=== PATIENT | female | born 1995 | race Hispanic/Latino ===

== ENCOUNTER 2023-03-22 05:05 | Emergency (ER) | payer OTHER ==
[2023-03-22 06:08] LABS: Absolute Lymphocytes (CBC) 1.8 K/uL (0.7-4.9); Hematocrit 39.3 % (36.0-45.0); Lymphocytes % 19.9 % (15.3-44.8); MCV 76.9 fL (80-100); MPV 7.9 fL (7.6-11.3); RBC Red Blood Cell Count 5.11 M/uL (3.86-4.86)
[2023-03-22 06:09] LABS: Specific Gravity 1.014 (1.005-1.030)
[2023-03-22 06:21] LABS: Specific Gravity 1.014 (1.005-1.030); Transitional Epithelial <5 /HPF (None Seen); Urine Bacteria 20-50 /HPF (<20); Urine Bilirubin NEGATIVE (Negative); Urine Blood 2+ (Negative); Urine Clarity Extremely Turbid (Clear); Urine Color Light-Yellow (Yellow); Urine Glucose NEGATIVE (Negative); Urine Mucus Slight /HPF (None Seen); Urine Protein 1+ (Negative); Urine Urobilinogen Normal (Normal); Urine WBC Clump Rare /HPF (None Seen)
[2023-03-22 06:25] LABS: Albumin 3.5 g/dL (3.4-5.0); Bilirubin Total 0.3 mg/dL (0.2-1.0); Potassium 3.7 mEq/L (3.5-5.1); Protein, Total 8.1 g/dL (6.4-8.2)
[2023-03-22] MEDS ORDERED: NA CHLORIDE 0.9% 1,000 ML ONE (06:35)
--- NOTE | 2023-03-22 07:07 | RAD REPORT ---
EXAM DESCRIPTION: CTAbdomen Pelvis W Contrast - 03/22/2023 6:56 am CLINICAL HISTORY: ABD PAIN COMPARISON: No comparisons TECHNIQUE: CT of the abdomen and pelvis was performed. All CT scans are performed using dose optimization technique as appropriate and may include automated exposure control or mA/KV adjustment according to patient size. FINDINGS: Lower chest: No acute abnormality. Liver: No acute abnormality or suspicious lesions. Biliary: No biliary ductal dilatation. Stomach: No significant focal abnormality. Duodenum: No significant focal abnormality. Pancreas: No significant abnormality. Spleen: No significant abnormality. Adrenal: No suspicious lesions. Kidney/ureter: No hydronephrosis. No renal calculi. Bilateral ureteral enhancement and stranding. Retroperitoneum: No retroperitoneal adenopathy. Vascular: No aneurysm. Bowel: No significant focal abnormality. Small fat containing umbilical hernia. Peritoneum: No ascites or free air. Bladder: Mild bladder wall thickening and enhancement. Reproductive: No adnexal masses. Bones: No acute fracture. Other: n/a IMPRESSION: Cystitis with ascending urinary tract infection involving both ureters. No hydronephrosi s or evidence of pyelonephritis, however.
--- NOTE | 2023-03-22 07:30 | ER ---
Nurse's Notes [facility] Name: Sean Galindo Age: 28 yrs Sex: Female : 1995 Arrival Date: 03/22/2023 Time: 05:05 Bed 8 Private MD: Diagnosis: UTI/ Urinary tract infection, site not specified;Lower abdominal pain, unspecified Presentation: 03/22 05:32 Chief complaint: Patient states: Thursday I had to pee a lot even if it was a little at a vc1 time then last night I woke up around 4 with sharp pain to my lower abdomen that shot around to my right lower back. 05:36 Coronavirus screen: Vaccine status: Patient reports receiving the 2nd dose of the covid vc1 vaccine. At this time, the client does not indicate any symptoms associated with coronavirus-19. Ebola Screen: Patient negative for fever greater than or equal to 101.5 degrees Fahrenheit, and additional compatible Ebola Virus Disease symptoms Patient denies exposure to infectious person. Patient denies travel to an Ebola-affected area in the 21 days before illness onset. No symptoms or risks identified at this time. Initial Sepsis Screen: Does the patient meet any 2 criteria? No. Patient's initial sepsis screen is negative. Does the patient have a suspected source of infection? No. Patient's initial sepsis screen is negative. Risk Assessment: Do you want to hurt yourself or someone else? Patient reports no desire to harm self or others. Onset of symptoms was March 20, 2023. 05:36 Method Of Arrival: Ambulatory vc1 05:36 Acuity: JEAN-PAUL 3 vc1 Triage Assessment: 05:34 General: Appears in no apparent distress. uncomfortable, Behavior is calm, cooperative, vc1 appropriate for age. Pain: Complains of pain in abdomen Pain radiates to right low back Pain currently is 3 out of 10 on a pain scale. Quality of pain is described as sharp. EENT: No deficits noted. No signs and/or symptoms were reported regarding the EENT system. Neuro: No deficits noted. Cardiovascular: No deficits noted. Respiratory: Airway is patent Respiratory effort is even, unlabored, Respiratory pattern is regular, symmetrical. GI: Reports lower abdominal pain. : Reports pain lower quadrant(s) in lower back urinary frequency. Derm: No deficits noted. No signs and/or symptoms reported regarding the dermatologic system. Musculoskeletal: No deficits noted. No signs and/or symptoms reported regarding the musculoskeletal system. 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 - Social history:: Smoking status: Reported history of juuling and/or vaping. - Family history:: not pertinent. Screenin:37 [facility] ED Fall Risk Assessment (Adult) History of falling in the last 3 months, vc1 including since admission No falls in past 3 months (0 pts) Confusion or Disorientation No (0 pts) Intoxicated or Sedated No (0 pts) Impaired Gait No (0 pts) Mobility Assist Device Used No (0 pt) Altered Elimination No (0 pt) Score/Fall Risk Level 0 - 2 = Low Risk Oriented to surroundings, Maintained a safe environment, Educated pt \T\ family on fall prevention, incl call for assistance when getting out of bed. Abuse screen: Denies threats or abuse. Nutritional screening: No deficits noted. Tuberculosis screening: No symptoms or risk factors identified. Assessment: 05:33 General: Appears in no apparent distress. Behavior is calm, cooperative. Pain: kd3 Complains of pain in abdomen. GI: Bowel sounds present X 4 quads. Abd is soft X 4 quads. 06:43 Reassessment: Patient and/or family updated on plan of care and expected duration. Pain kd3 level reassessed. Patient is alert, oriented x 3, equal unlabored respirations, skin warm/dry/pink. Vital Signs: 05:36 BP 133 / 89; Pulse 78; Resp 15; Temp 98.2; Pulse Ox 100% ; Weight 97.52 kg; Height 5 vc1 ft. 5 in. ; Pain 3/10; 06:00 BP 117 / 73; Pulse 75; Resp 15 S; Pulse Ox 99% on R/A; ha1 06:43 BP 116 / 81; Pulse 69; Resp 18; Pulse Ox 98% on R/A; kd3 05:36 Body Mass Index 35.78 (97.52 kg, 165.1 cm) vc1 05:36 Pain Scale: Adult vc1 ED Course: 05:16 Patient arrived in ED. ag3 05:33 Laurel Strong, TANYA is Primary Nurse. kd3 05:36 Arm band placed on left wrist. vc1 05:37 Guanakito Dasilva MD is Attending Physician. sp4 05:37 Triage completed. vc1 05:38 Patient has correct armband on for positive identification. Bed in low position. Call vc1 light in reach. Pulse ox on. NIBP on. 05:45 Inserted saline lock: 22 gauge in right forearm, using aseptic technique. Blood ha1 collected. 05:59 CBC with Diff Sent. ha1 05:59 CMP Sent. ha1 05:59 Lipase Sent. ha1 05:59 Test, Urine Sent. ha1 05:59 Urinalysis w/ reflexes Sent. ha1 06:57 CT Abd/Pelvis - IV Contrast Only In Process Unspecified. EDMS 07:17 Attending Physician role handed off by Guanakito Dasilva MD ms3 07:17 Serafin Lanza DO is Attending Physician. ms3 07:29 Eduard Saldaña MD is Referral Physician. ms3 07:55 No provider procedures requiring assistance completed. IV discontinued, intact, ph bleeding controlled, No redness/swelling at site. Pressure dressing applied. Administered Medications: 06:42 Drug: NS 0.9% IV 1000 ml Route: IV; Rate: 1 bolus; Site: right forearm; kd3 07:56 Follow up: Response: No adverse reaction; IV Status: Completed infusion ph Medication: 05:39 VIS not applicable for this client. vc1 Outcome: 07:29 Discharge ordered by . ms3 07:55 Discharged to home ambulatory, with significant other. ph 07:55 Condition: good 07:55 Discharge instructions given to patient, Instructed on discharge instructions, follow up and referral plans. medication usage, Demonstrated understanding of instructions, follow-up care, medications, Prescriptions given X 2. 07:56 Patient left the ED. ph Signatures: Dispatcher [employer] EDSri Llamas RN RN Josephine Caban ag3 Serafin Lanza DO DO ms3 Laurel Strong RN RN 3 Araceli Corbett RN RN vc1 Paz Garrett, RN RN ha1 Guanakito Dasilva MD MD sp4
--- NOTE | 2023-03-22 07:30 | EDPHYS ---
Physician Documentation [facility] Name: Sean Galindo Age: 28 yrs Sex: Female : 1995 Arrival Date: 03/22/2023 Time: 05:05 Bed 8 Private MD: ED Physician Serafin Lanza HPI: 03/22 07:05 This 28 yrs old Female presents to ER via Ambulatory with complaints of sp4 Abdominal Pain. 07:05 28-year-old female presents with acute worsening lower abdominal pain with radiation to sp4 the back. Patient states pain started acutely this morning 2 hours prior to arrival. Patient denies urinary symptoms or vomiting. Patient denied any possibility of . Patient denied any prior abdominal surgery. 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 - Social history:: Smoking status: Reported history of juuling and/or vaping. - Family history:: not pertinent. ROS: 07:05 Constitutional: Negative for fever, chills, and weight loss, Eyes: Negative for injury, sp4 pain, redness, and discharge, ENT: Negative for injury, pain, and discharge, Neck: Negative for injury, pain, and swelling, Cardiovascular: Negative for chest pain, palpitations, and edema, Respiratory: Negative for shortness of breath, cough, wheezing, and pleuritic chest pain, Abdomen/GI: Negative for nausea, vomiting, diarrhea, and constipation, positive for lower abdominal pain with radiation into the back Back: Negative for injury and pain, : Negative for injury, bleeding, discharge, and swelling, MS/Extremity: Negative for injury and deformity, Skin: Negative for injury, rash, and discoloration, Neuro: Negative for headache, weakness, numbness, tingling, and seizure, Psych: Negative for depression, anxiety, Allergy/Immunology: Negative for hives, rash, and allergies Endocrine: Negative for neck swelling, polydipsia, polyuria, polyphagia, and weight changes Hematologic/Lymphatic: Negative for swollen nodes, abnormal bleeding, and unusual bruising Exam: 07:05 Constitutional: This is a well developed, well nourished patient who is awake, alert, sp4 and in no acute distress. Head/Face: Normocephalic, atraumatic. Eyes: Pupils equal round and reactive to light, extra-ocular motions intact. Lids and lashes normal. Conjunctiva and sclera are not injected. Cornea within normal limits. Periorbital areas with no swelling, redness, or edema. ENT: Nares patent. No nasal discharge, no septal abnormalities noted. Tympanic membranes are normal and external auditory canals are clear. Oropharynx with no redness, swelling, or masses, exudates, or evidence of obstruction, uvula midline. Mucous membranes moist. Neck: Trachea midline, no thyromegaly or masses palpated, and no cervical lymphadenopathy. Supple, full range of motion without nuchal rigidity, or vertebral point tenderness. Chest/axilla: Normal chest wall appearance and motion. Nontender with no deformity. No lesions are appreciated. Cardiovascular: Regular rate and rhythm with a normal S1 and S2. No gallops, murmurs, or rubs. Normal PMI, no JVD. No pulse deficits. Respiratory: Lungs have equal breath sounds bilaterally, clear to auscultation and percussion. No rales, rhonchi or wheezes noted. No increased work of breathing, no retractions or nasal flaring. Abdomen/GI: Soft, there is a right lower quadrant abdominal tenderness with equivocal rebound, no significant rigidity or distention, normal active bowel sounds. Back: No spinal tenderness. No costovertebral tenderness. Skin: Warm, dry with normal turgor. Normal color with no rashes, no lesions, and no evidence of cellulitis. MS/ Extremity: Pulses equal, no cyanosis. Neurovascular intact. Full, normal range of motion. Neuro: Awake and alert, GCS 15, oriented to person, place, time, and situation. Cranial nerves II-XII grossly intact. Motor strength 5/5 in all extremities. Sensory grossly intact. Psych: Awake, alert, with orientation to person, place and time. Behavior, mood, and affect are within normal limits Vital Signs: 05:36 BP 133 / 89; Pulse 78; Resp 15; Temp 98.2; Pulse Ox 100% ; Weight 97.52 kg; Height 5 vc1 ft. 5 in. ; Pain 3/10; 06:00 BP 117 / 73; Pulse 75; Resp 15 S; Pulse Ox 99% on R/A; ha1 06:43 BP 116 / 81; Pulse 69; Resp 18; Pulse Ox 98% on R/A; kd3 05:36 Body Mass Index 35.78 (97.52 kg, 165.1 cm) vc1 05:36 Pain Scale: Adult vc1 MDM: 05:37 Patient medically screened. sp4 07:05 Differential Diagnosis sepsis, Pyelonephritis, cystitis, ovarian cyst, ovarian torsion, sp4 acute appendicitis, peritonitis. Data reviewed: vital signs, nurses notes, lab test result(s), amylase and lipase, CBC, electrolytes, hepatic panel, urinalysis, UPT: negative radiologic studies, CT scan. Transition of care: After a detail discussion of the patient's case, care is transferred to [facility]. 03/22 05:37 Order name: CBC with Diff; Complete Time: 06:13 sp4 03/22 05:37 Order name: CMP; Complete Time: 07:22 sp4 03/22 05:37 Order name: Lipase; Complete Time: 07:22 sp4 03/22 05:37 Order name: Test, Urine; Complete Time: 06:13 sp4 03/22 05:37 Order name: Urinalysis w/ reflexes; Complete Time: 07:22 sp4 03/22 06:25 Order name: Urine Culture EDAK 03/22 06:14 Order name: CT Abd/Pelvis - IV Contrast Only; Complete Time: 07:22 sp4 03/22 05:37 Order name: IV Saline Lock; Complete Time: 05:59 sp4 03/22 05:37 Order name: Labs collected and sent; Complete Time: 05:59 sp4 Administered Medications: 06:42 Drug: NS 0.9% IV 1000 ml Route: IV; Rate: 1 bolus; Site: right forearm; kd3 07:56 Follow up: Response: No adverse reaction; IV Status: Completed infusion ph Disposition Summary: 03/22/23 07:29 Discharge Ordered Location: Home ms3 Condition: Stable ms3 Diagnosis - UTI/ Urinary tract infection, site not specified ms3 - Lower abdominal pain, unspecified ms3 Followup: ms3 - With: Eduard Saldaña MD - When: 2 - 3 days - Reason: Recheck today's complaints Discharge Instructions: - Discharge Summary Sheet ms3 - Abdominal Pain, Adult ms3 - Urinary Tract Infection, Adult ms3 Forms: - Family Work Release ph - Medication Reconciliation Form ms3 - Thank You Letter ms3 - Antibiotic Education ms3 - Prescription Opioid Use ms3 - Patient Portal Instructions ms3 Prescriptions: - cefuroxime axetil 500 mg Oral tablet - take 1 tablet by ORAL route every 12 hours for 7 days; 14 tablet; Refills: 0, ms3 Product Selection Permitted - Fluconazole 150 mg Oral Tablet - take 1 tablet by ORAL route once daily; 1 tablet; Refills: 0, Product Selection ms3 Permitted Signatures: Dispatcher [employer] EDMS Serafin Lanza, DO ms3 Laurel Strong, RN RN kd3 Araceli Corbett RN RN vc1 Guanakito Dasilva MD MD sp4 Sri Walters RN ph
[2023-03-22 08:20] VITALS: TEMP 98.2
[2023-03-22 08:22] VITALS: BP 116/81; O2SAT 98
== END 2023-03-22 07:56 | disposition home or self-care (01) ==
LOC: ER 05:05
DX: N39.0 Urinary tract infection, site not specified (principal)
CPT/HCPCS: 87088; 85025; 81001; 87086; 36415; 81025; 83690; 80053; 74177; Q9967; J7030; 87077; 87186; 96360; 99284